=== PATIENT | male | born 1970 | race Caucasian/White ===

== ENCOUNTER → 2017-03-20 | Outpatient (REF) ==
[~2017-03-20] MED LIST: ALPR0.5T PO; AMOX500C2 PO; ESCI20TA PO; FENO145T20 PO; HYDR-3714 PO; IBUP200C PO; IPRA4AER IH; LAMO100T PO; LITH300T3 PO; METH-288 PO; MOME13HF2 IH; RISP1TAB3 PO; RT-ALBUINH IH
--- NOTE | 2017-03-20 12:14 | Diagnostic Imaging Report ---
EXAMINATION: Two views of the right foot. INDICATION: Injury with a box falling on the foot. FINDINGS: No fracture, dislocation, or radiopaque foreign body. There is a calcaneal spur at the Achilles tendon insertion site. IMPRESSION: No fracture is seen. Dictated by: Dictated on workstation # [id number]
== END | disposition home or self-care (01) ==
LOC: OCC 11:33
PROVIDERS: ATTEND Nurse Practitioner Family
CPT/HCPCS: 73630

== ENCOUNTER → 2021-05-16 | Outpatient (CLI) | payer OTHER ==
[~2021-05-16] MED LIST changes: -FENO145T20 PO; +FENO145T26 PO; -LAMO100T PO; +LAMO100T5 PO; -RISP1TAB3 PO; +RISP1TAB93 PO
== END ==
LOC: ORTHO 10:35 → MERGE 10:35
PROVIDERS: ATTEND Orthopaedic Surgery
DX: S56.911A Strain of unspecified muscles, fascia and tendons at forearm level, right arm, initial encounter (principal); X58.XXXA Exposure to other specified factors, initial encounter
CPT/HCPCS: 99203

== ENCOUNTER → 2021-05-30 | Outpatient (CLI) | payer MEDICAID | LOC: ORTHO 08:57 | PROVIDERS: ATTEND Orthopaedic Surgery | DX: M77.11 Lateral epicondylitis, right elbow (principal) | CPT/HCPCS: 20551 ==

== ENCOUNTER → 2022-07-11 | Outpatient (CLI) | payer MEDICAID ==
[~2022-07-11] MED LIST changes: +ALBU8.5H6 IH; -RT-ALBUINH IH
== END ==
LOC: ORTHO 08:15
PROVIDERS: ATTEND Orthopaedic Surgery
DX: S56.911A Strain of unspecified muscles, fascia and tendons at forearm level, right arm, initial encounter (principal); X58.XXXA Exposure to other specified factors, initial encounter
CPT/HCPCS: 99213

== ENCOUNTER → 2022-07-16 | Outpatient (CLI) | payer MEDICAID ==
--- NOTE | 2022-07-16 11:52 | Diagnostic Imaging Report ---
PROCEDURE: MRI right joint upper extremity without contrast. TECHNIQUE: Multiplanar, multisequence non contrast-enhanced MRI of the right upper extremity was accomplished. INDICATION: Right elbow pain. History of ulnar nerve surgery in 2019. COMPARISON: 05/23/2021 FINDINGS: No acute fracture is seen in the right elbow. Alignment appears normal. There is a moderate elbow joint effusion. The ulnar collateral ligament is intact. The radial collateral ligament appears intact. The origin of the common extensor tendon demonstrates marked tendinosis with low-grade partial tearing. The origin of the common flexor tendon appears intact. The distal biceps tendon is intact. The brachialis tendon is intact. The distal triceps tendon appears intact. The ulnar nerve is displaced medially outside of the cubital tunnel. The median nerve is unremarkable. The radial nerve appears normal. No focal muscular atrophy is seen. No soft tissue masses or fluid collections are seen. There is mild posterior subcutaneous edema. IMPRESSION: 1. Marked tendinosis and low-grade partial tearing at the origin of the common extensor tendon. 2. Medial displacement of the ulnar nerve at the cubital tunnel. 3. Moderate right elbow joint effusion. Dictated by: Dictated on workstation # [id number]
== END ==
LOC: RAD 09:00
PROVIDERS: ATTEND Orthopaedic Surgery
DX: S56.511A Strain of other extensor muscle, fascia and tendon at forearm level, right arm, initial encounter (principal); M25.421 Effusion, right elbow; G56.22 Lesion of ulnar nerve, left upper limb
CPT/HCPCS: 73221

== ENCOUNTER → 2022-07-24 | Outpatient (CLI) | payer MEDICAID ==
[~2022-07-24] MED LIST changes: +ACHD5005 PO
== END ==
LOC: ORTHO 09:20
PROVIDERS: ATTEND Orthopaedic Surgery
DX: S53.402A Unspecified sprain of left elbow, initial encounter (principal); X58.XXXA Exposure to other specified factors, initial encounter
CPT/HCPCS: 99213

== ENCOUNTER 2022-07-25 05:31 | Outpatient (CLI) | payer MEDICAID ==
[~2022-07-25] VITALS: Ht 180 cm; Wt 90.0 kg
[~2022-07-25 05:31] MED LIST changes: -ACHD5005 PO
[2022-07-26] MEDS ORDERED: ACHD5005 PO (09:38)
== END 2022-07-26 11:15 ==
LOC: PREOP 05:31
PROVIDERS: ATTEND Orthopaedic Surgery
DX: Z01.818 Encounter for other preprocedural examination (principal); M77.11 Lateral epicondylitis, right elbow

== ENCOUNTER 2022-07-30 10:03 | Day surgery (SDC) | payer MEDICAID ==
[~2022-07-30] VITALS: Ht 180 cm; Wt 90.0 kg
[2022-07-30] VITALS (12 sets, daily range): BP systolic 114–157; BP diastolic 78–99
[~2022-07-30 10:03] MED LIST changes: +ACHD5005 PO
[2022-07-30] MEDS: LACTATED RINGERS 1,000 ML IV PRN ×2 (10:25→13:17)
[2022-07-30] MEDS ORDERED: ceFAZolin INJECTION 2,000 MG in NS (IVPB) 50 ML IV ONE (10:30)
[2022-07-30] MEDS ORDERED: BUPIVACAINE 0.25% 30 ML (SENSORCAINE) VIAL ONE (12:08)
[2022-07-30] MEDS ORDERED: MIDAZOLAM 2 MG/2 ML (VERSED) VIAL ONE (12:22)
[2022-07-30] MEDS ORDERED: MIDAZOLAM 2 MG/2 ML (VERSED) VIAL IVP ONE (12:30)
[2022-07-30] MEDS ORDERED: fentaNYL INJ 100 MCG/2 ML AMP ONE ×2 (13:10→13:40)
[2022-07-30] MEDS ORDERED: LIDOCAINE PF 2% 5 ML (XYLOCAINE) VIAL ONE (13:10)
[2022-07-30] MEDS ORDERED: proPOfol 200 MG/20 ML (DIPRIVAN) VIAL IV ONE (13:10)
[2022-07-30] MEDS ORDERED: ONDANSETRON 4 MG/2 ML (SDV) Z0FRAN ONE (13:10)
[2022-07-30] MEDS ORDERED: SEVOFLURANE (ULTANE) 15 ML INHAL SOLN ONE (13:10)
--- NOTE | 2022-07-30 13:18 | Progress Note-Pre Operative ---
Pre-Operative Progress Note Date of Available H&P: Jul 24, 2022 Date H&P Reviewed: Jul 30, 2022 Time H&P Reviewed: 13:10 History & Physical: H&P Reviewed, Patient Examed, No changes noted Pre-Operative Diagnosis: Right Lateral Epicondylitis with Partial Thickness Tendon Tear SABINA YOU MD Jul 30, 2022 13:18
[2022-07-30] MEDS ORDERED: BUP/EPI 0.25% 1:200,000 (MARCAINE) 30 ML VIAL ONE (13:26)
--- NOTE | 2022-07-30 14:16 | Operative Report - Ortho ---
Operative Report Surgeon (s)/Energy Manager (s) Surgeon SABINA YOU MD Energy Manager n/a Pre-Operative Diagnosis Right Lateral Epicondylitis with Partial Thickness Tendon Tear Post-Operative Diagnosis same Operative Report Date of Procedure: Jul 30, 2022 Name of Procedure Performed: Debridement of Right Lateral Epicondyle with Repair of Tendon Description & Findings After obtaining informed consent and marking the patient in the preop holding area, the patient was administered IV antibiotics. Patient was taken to the OR and general anesthesia was induced. The left upper extremity was prepped and draped. Surgical timeout was taken. Incision was made from the anterolateral edge of the lateral epicondyle and extended for just over 4 cm. Blunt dissection was carried down to fascia. Fascia was divided and dissection was carried down to the lateral epicondyle. Rongeur was used to removed degenerative tendon tissue and used to debride the edge of the bone. 1.4 mm Iconix anchor was inserted in the lateral epicondyle. Horizontal matress suture qas passed through the common extensor. Suture was tied with good approximation and compression to the debrided area of bone. Wound was irrigated with normal s opal. Fascial layer was repaired with 0 vicryl. Subcutaneous layer was repaired with 3-0 vicryl. Skin was repaired with 3-0 nylon. Wound was dressed with xeroform, 4x4s, veronika, and tyson wrap. Patient tolerated the procedure well and was stable to the recovery room. Anesthesia Type General Estimated Blood Loss minimal Specimen(s) collected/removed None SABINA YOU MD Jul 30, 2022 14:16
[2022-07-30] MEDS ORDERED: ACHD5005 PO (14:18)
[2022-07-30] MEDS ORDERED: ONDANSETRON 4 MG/2 ML (SDV) Z0FRAN IVP PRN (14:30)
[2022-07-30] MEDS ORDERED: HYDROmorphone 2 MG/ML VIAL (DILAUDID) IV ONE (14:30)
[2022-07-30] MEDS ORDERED: morphine INJ 10 MG/ML 1ML (SYR OR VIAL) IVP ONE (14:30)
--- NOTE | 2022-07-30 14:31 | Anesthesia-General Post-Op ---
General Patient Condition Mental Status/LOC: Same as Preop Cardiovascular: Satisfactory Nausea/Vomiting: Absent Respiratory: Satisfactory Pain: Controlled Complications: Absent Post Op Complications Complications None Follow Up Care/Instructions Patient Instructions None needed. Anesthesia/Patient Condition Patient Condition Patient is doing well in PACU with no complaints, stable vital signs, no apparent adverse anesthesia problems. No complications reported per nursing. KEENAN PELAYO DO Jul 30, 2022 14:31
[2022-07-30] MEDS ORDERED: morphine INJ 10 MG/ML 1ML (SYR OR VIAL) ONE (14:37)
[2022-07-30] MEDS ORDERED: HYDROcodone/APAP 5 MG/325 MG (LORTAB) TAB PO ONE (15:30)
[2022-07-30] MEDS ORDERED: HYDROcodone/APAP 5 MG/325 MG (LORTAB) TAB ONE (15:39)
== END 2022-07-30 16:00 | disposition home or self-care (01) ==
LOC: SDC 10:03
PROVIDERS: ATTEND Orthopaedic Surgery
DX: M77.11 Lateral epicondylitis, right elbow (principal)
CPT/HCPCS: 87081

== ENCOUNTER → 2022-08-09 | Outpatient (CLI) | payer MEDICAID | LOC: ORTHO 11:08 | PROVIDERS: ATTEND Orthopaedic Surgery | DX: Z47.89 Encounter for other orthopedic aftercare (principal) ==